=== PATIENT | female | born 1975 | race Caucasian/White ===

== ENCOUNTER 2024-03-03 02:13 | Inpatient (IN) | payer OTHER ==
[2024-03-03 02:25] VITALS: BMI 32.5
[2024-03-03] MEDS ORDERED: ONDANSETRON 4 MG/2 ML VIAL ONE ×2 (03:21→06:18)
[2024-03-03] MEDS ORDERED: MORPHINE SULFATE 2 MG/ML SYRINGE ONE ×2 (03:21→03:38)
[2024-03-03] MEDS: morphine SULFATE 4 MG/ML VIAL IVPUSH ONE ×2 (03:34→06:06)
[2024-03-03] MEDS: morphine CARPU-JECT 4 MG/1 ML DISP.SYRIN IVPUSH ONE ×2 (03:35→08:49)
[2024-03-03] MEDS: SODIUM CHLORIDE 0.9% 1000 ML INFUS.BAG IV ONE (03:35)
[2024-03-03] MEDS: ONDANSETRON 4 MG/2 ML VIAL IVPUSH ONE ×2 (03:35→06:06)
[2024-03-03 04:18] LABS: BASO % 0.1 % (0-2.0); EOS % 0.2 % (0-4.5); HEMATOCRIT 43.3 % (32.4-45.2); HEMOGLOBIN 14.5 GM/dL (10.7-15.3); LYMPH % 13.5 % (8-40); MCH 30.1 pg (25.7-33.7); MCHC 33.5 g/dl (32.0-36.0); MEAN CELL VOLUME 89.6 fl (80-96); NEUT % 83.2 % (42.8-82.8); PLATELET COUNT 259 10^3/uL (134-434); RBC 4.83 M/mm3 (3.60-5.2); RDW 12.8 % (11.6-15.6); WHITE BLOOD COUNT 11.1 K/mm3 (4.0-10.0)
[2024-03-03 04:38] LABS: POTASSIUM 3.5 mmol/L (3.5-5.1)
[2024-03-03 04:40] LABS: ALBUMIN 3.8 g/dl (3.4-5.0); BLOOD UREA NITROGEN 15.9 mg/dL (7-18)
[2024-03-03 04:42] LABS: CREATININE 0.9 mg/dL (0.55-1.3)
[2024-03-03 04:43] LABS: PHOSPHOROUS 1.4 mg/dL (2.5-4.9)
[2024-03-03 04:44] LABS: BILIRUBIN,TOTAL 0.4 mg/dL (0.2-1); TOT PROT 7.5 g/dl (6.4-8.2)
[2024-03-03 06:10] LABS: URINE APPEARANCE CLEAR; URINE BILIRUBIN NEGATIVE (NEGATIVE); URINE COLOR YELLOW; URINE GLUCOSE (UA) NEGATIVE (NEGATIVE); URINE KETONE NEGATIVE (NEGATIVE); URINE LEUK ESTERASE NEGATIVE (NEGATIVE); URINE NITRITE NEGATIVE (NEGATIVE); URINE PROTEIN NEGATIVE (NEGATIVE); URINE UROBILINOGEN 0.2 mg/dL (0.2-1.0)
[2024-03-03 06:13] LABS: HCG,QUALITATIVE URINE Negative
[2024-03-03] MEDS ORDERED: morphine SULFATE 4 MG/ML VIAL ONE ×3 (06:18→16:35)
[2024-03-03] MEDS ORDERED: NAPH,MB-DB/K PH,MBDB POWDER PACKET ONE (08:37)
[2024-03-03] MEDS ORDERED: dilTIAZem HCL 50 MG/10 ML - 10 ML VIAL ONE (08:37)
[2024-03-03] MEDS: NAPH,MB-DB/K PH,MBDB POWDER PACKET PO ONE (08:49)
[2024-03-03] MEDS: dilTIAZem HCL 50 MG/10 ML - 10 ML VIAL IVPUSH ONE (08:50)
[2024-03-03] MEDS: LACTATED RINGERS SOLUTION 1,000 ML/1,000 ML INFUS.BAG IV SCH ×2 (09:08→22:42)
[2024-03-03] MEDS ORDERED: PIPERACILLIN/TAZOB 3.375 GM 3.375 GM/50 ML BAG IVPB ONE ×2 (09:50→16:55)
[2024-03-03] MEDS: PIPERACILLIN/TAZOB 3.375 GM 3.375 GM in DEXTROSE 5%-WATER - 50 ML IVPB ONE (09:58)
[2024-03-03] MEDS ORDERED: ONDANSETRON 4 MG/2 ML VIAL IVPUSH PRN (10:10)
[2024-03-03] MEDS: morphine SULFATE 4 MG/ML VIAL IVPUSH PRN (16:44)
[2024-03-03] MEDS: PIPERACILLIN/TAZOB 3.375 GM 50 ML IVPB SCH (17:05)
[2024-03-04] MEDS: ACETAMINOPHEN 1000 MG/100 ML BAG IVPB PRN ×2 (09:02→16:44)
[2024-03-04] MEDS ORDERED: ACETAMINOPHEN 1000 MG/100 ML BAG IVPB PRN (10:39)
[2024-03-04] MEDS ORDERED: BUPIVACAINE HCL/PF 0.25% (2.5MG/ML) 10 ML VIAL ONE ×2 (10:48→13:26)
[2024-03-04] MEDS ORDERED: PROPOFOL 20 ML ONE ×2 (10:59→14:25)
[2024-03-04] MEDS ORDERED: ROCURONIUM BROMIDE 50 MG/5 ML SYRINGE ONE ×2 (10:59→14:26)
[2024-03-04] MEDS ORDERED: MIDAZOLAM HCL 2 MG/2 ML SINGLE DOSE VIAL ONE ×2 (10:59→14:26)
[2024-03-04] MEDS ORDERED: CEFOXITIN SODIUM/DEXTROSE,ISO 2 GM/50 ML BAG ONE ×2 (13:26→13:55)
[2024-03-04] MEDS ORDERED: HEPARIN NA (PORCINE) 5,000 UNITS/ML 1ML VIAL ONE ×2 (13:26→13:55)
[2024-03-04] MEDS ORDERED: CEFOXITIN SODIUM 1 GM IVPB ONE (13:55)
[2024-03-04] MEDS ORDERED: oxyCODONE HCL 5 MG TABLET PO PRN ×2 (14:21→16:23)
[2024-03-04] MEDS ORDERED: SUCCINYLCHOLINE CHLORIDE 200 MG/10 ML SYRINGE ONE (14:26)
[2024-03-04] MEDS: cefOXitin SODIUM 2 GM VIAL (RESTRICTED TO ID) IVPB ONE (14:38)
[2024-03-04] MEDS: BUPIVACAINE HCL/PF 0.25% (2.5MG/ML) 10 ML VIAL IJ ONE ×2 (15:03)
[2024-03-04] MEDS ORDERED: KETOROLAC TROMETHAMINE 30 MG/1 ML VIAL ONE (15:26)
[2024-03-04] MEDS ORDERED: ONDANSETRON 4 MG/2 ML VIAL ONE (15:26)
[2024-03-04] MEDS ORDERED: DEXAMETHASONE SOD PHOSPHATE 4 MG/1 ML VIAL ONE (15:26)
[2024-03-04] MEDS ORDERED: SUGAMMADEX SODIUM 200 MG/2 ML VIAL ONE (15:27)
[2024-03-04] MEDS ORDERED: ONDANSETRON 4 MG/2 ML VIAL IVPUSH PRN (16:23)
[2024-03-04] MEDS: ACETAMINOPHEN INJECTION 100 ML ONE (16:40)
[2024-03-04] MEDS ORDERED: PIPERACILLIN/TAZOB 3.375 GM 3.375 GM in DEXTROSE 5%-WATER - 50 ML IVPB SCH (18:00)
[2024-03-04] MEDS: PIPERACILLIN/TAZOB 3.375 GM 50 ML IVPB SCH (18:25)
[2024-03-04 18:29] VITALS: RESP 18
[2024-03-04] MEDS: PIPERACILLIN/TAZOB 3.375 GM 3.375 GM in DEXTROSE 5%-WATER - 50 ML IVPB SCH (18:39)
[2024-03-05] MEDS: LACTATED RINGERS SOLUTION 1,000 ML/1,000 ML INFUS.BAG IV SCH (01:41)
[2024-03-05] MEDS: morphine SULFATE 4 MG/ML VIAL IVPUSH PRN (03:56)
[2024-03-05 12:05] VITALS: BP 98/64; PULSE 91; TEMP 99
== END 2024-03-05 12:02 | disposition home or self-care (01) | DRG 263 ==
LOC: JER 02:13 → EDBD 02:13 → JERBED 09:01 → EDBD 09:01 → J5S 21:29
PROVIDERS: ADMIT Internal Medicine; ATTEND Internal Medicine
PROC: 0FT44ZZ Resection of Gallbladder, Percutaneous Endoscopic Approach (ICD-10-PCS; principal; 2024-03-04 14:30)
DX: K80.00 Calculus of gallbladder with acute cholecystitis without obstruction (principal); R10.9 Unspecified abdominal pain; E83.39 Other disorders of phosphorus metabolism; R11.2 Nausea with vomiting, unspecified
CPT/HCPCS: 0241U-QW; 36415; 76705-TC; 80053; 80061; 81003; 83036; 83690; 83735; 84100; 84439; 84443; 84484; 84703; 85025; 87086; 88304-TC; 93005; 93010; 94760; 99285-25; J0131; J1644